=== PATIENT | male | born 1975 | race Caucasian/White ===

== ENCOUNTER 2018-06-15 09:32 | Emergency (ER) | payer MEDICAID, OTHER ==
[~2018-06-15] VITALS: Ht 175.3 cm; Wt 59.0 kg
[2018-06-15 09:52] VITALS: BP 120/76
[2018-06-15 11:19] LABS: Basophils # (auto) 0.1 uL; Basophils % (auto) 0.9 % (0.0-2.0); Eosinophils # (auto) 0 uL; Eosinophils % (auto) 0.4 % (0.0-7.0); Lymphocytes # (auto) 2.3 uL; Lymphocytes % (auto) 30.1 % (10.0-50.0); Mean Corpuscular Hemoglobin 32.1 pg (28.0-32.0); Mean Corpuscular Volume 94.3 fL (80.0-100.0); Monocytes # (auto) 0.4 uL; Monocytes % (auto) 5.3 % (0.0-12.0); Neutrophils # (auto) 4.8 uL; Neutrophils % (auto) 63.3 % (37.0-80.0); Nucleated Red Blood Cells % 0.2 %; Platelet Count (auto) 230 10^3/uL (140-450); Red Blood Cells 4.99 10^6/uL (4.5-5.90); Red Cell Distribution Width 14.1 % (11.8-14.3); White Blood Cell 7.6 10^3/uL (4.4-10.8)
[2018-06-15 11:20] LABS: Alanine Aminotransferase 17 U/L (16-61); Albumin 3.8 g/dL (3.4-5.0); Anion Gap 4 (5-15); Blood Urea Nitrogen 12 mg/dL (7-18); Calcium 8.4 mg/dL (8.5-10.1); Carbon Dioxide 29 mmol/L (21-32); Chloride 108 mmol/L (98-107); Glucose 94 mg/dL (74-106); Sodium 141 mmol/L (136-145)
[2018-06-15 11:25] LABS: Alkaline Phosphatase 52 U/L (45-117); Aspartate Aminotransferase 7 U/L (15-37); BUN/Creatinine Ratio 13.3; Bilirubin, Total 0.5 mg/dL (0.2-1.0); GFR African American 120 mL/min; GFR Non-African American 99 mL/min; Total Protein 7.4 g/dL (6.4-8.2)
== END 2018-06-15 14:02 | disposition home or self-care (01) ==
LOC: ER 09:32
DX: R07.89 Other chest pain (principal)
CPT/HCPCS: 36415; 71046; 80053; 83735; 84484; 85025; 93005

== ENCOUNTER 2019-10-03 11:18 | Emergency (ER) | payer BC, MEDICAID ==
[~2019-10-03] VITALS: Ht 172.7 cm; Wt 59.0 kg
[2019-10-03 12:55] VITALS: BP 145/88
== END 2019-10-03 13:14 | disposition home or self-care (01) ==
LOC: ER 11:18
DX: M26.602 Left temporomandibular joint disorder, unspecified (principal); F17.210 Nicotine dependence, cigarettes, uncomplicated

== ENCOUNTER → 2019-10-20 | Emergency (ER) | payer BC, MEDICAID ==
[~2019-10-20] VITALS: Ht 172.7 cm; Wt 63.5 kg
[2019-10-20 22:58] VITALS: BP 130/93
== END | disposition home or self-care (01) ==
LOC: ER 22:15
DX: R05 Cough (principal); R51 Headache; R53.81 Other malaise

== ENCOUNTER 2020-03-16 13:49 | Emergency (ER) | payer MEDICAID ==
[~2020-03-16] VITALS: Ht 172.7 cm; Wt 59.0 kg
[2020-03-16] MEDS ORDERED: FAMOTIDINE (10MG/ML) 2ML VL IV ONE (15:15)
[2020-03-16] MEDS ORDERED: SODIUM CHLORIDE 0.9% 1,000 ML IV ONE (15:15)
[2020-03-16] MEDS ORDERED: PANTOPRAZOLE 40 MG/10 ML VIAL INJ IV ONE (15:15)
[2020-03-16] MEDS ORDERED: ALUM & MAG HYDROX-SIMETH LIQ(MAALOX) 30 ML PO ONE (15:15)
[2020-03-16 15:47] LABS: Basophils # (auto) 0.1 10 ^3/uL (0-0.2); Basophils % (auto) 0.6 % (0.0-2.0); Eosinophils # (auto) 0.3 10 ^3/uL (0-0.8); Eosinophils % (auto) 2.3 % (0.0-7.0); Hematocrit 45.7 % (41.0-53.0); Hemoglobin 15.9 g/dL (13.5-17.5); Lymphocytes # (auto) 3.1 10 ^3/uL (0.4-5.4); Lymphocytes % (auto) 27.5 % (10.0-50.0); Mean Corpuscular Hgb Conc. 34.7 g/dL (32.0-36.0); Mean Corpuscular Volume 92.4 fL (80.0-100.0); Monocytes # (auto) 0.7 10 ^3/uL (0-1.3); Neutrophils # (auto) 7.2 10 ^3/uL (1.6-8.6); Neutrophils % (auto) 63.6 % (37.0-80.0); Platelet Count (auto) 256 10^3/uL (140-450); Red Blood Cells 4.95 10^6/uL (4.5-5.90); Red Cell Distribution Width 13.7 % (11.8-14.3); White Blood Cell 11.3 10^3/uL (4.4-10.8)
[2020-03-16 16:02] LABS: Calcium 8.5 mg/dL (8.5-10.1); Magnesium 2.6 mg/dL (1.6-2.6); Potassium 3.7 mmol/L (3.5-5.1)
[2020-03-16 16:04] LABS: INR 0.98 (0.9-1.15); Partial Thromboplastin Time 23.6 sec (23.0-31.2)
[2020-03-16 16:22] LABS: BUN/Creatinine Ratio 21.8; Bilirubin, Total 0.6 mg/dL (0.2-1.0); Total Protein 7.7 g/dL (6.4-8.2)
[2020-03-16] MEDS ORDERED: HYDR25SU21 PR ×2 (17:29→19:47)
[2020-03-16 19:06] VITALS: BP 124/74
[2020-03-16] MEDS ORDERED: FAMO-12 PO (19:54)
== END 2020-03-16 22:36 | disposition home or self-care (01) ==
LOC: ER 13:49
DX: K64.9 Unspecified hemorrhoids (principal); K62.5 Hemorrhage of anus and rectum; K21.9 Gastro-esophageal reflux disease without esophagitis; F17.210 Nicotine dependence, cigarettes, uncomplicated; Z88.0 Allergy status to penicillin; Z79.899 Other long term (current) drug therapy
CPT/HCPCS: 36415; 80053; 83605; 83690; 83735; 85025; 85610; 85730; 86850; 86900; 86901; 96361; 96374; 99283; J3490; J7030

== ENCOUNTER 2021-12-01 12:31 | Emergency (ER) | payer MEDICAID ==
[~2021-12-01] VITALS: Ht 172.7 cm; Wt 75.0 kg
[2021-12-01 14:08] VITALS: BP 139/92
== END 2021-12-01 15:48 | disposition home or self-care (01) ==
LOC: ER 12:31
DX: M26.602 Left temporomandibular joint disorder, unspecified (principal); F41.9 Anxiety disorder, unspecified; K21.9 Gastro-esophageal reflux disease without esophagitis; F17.210 Nicotine dependence, cigarettes, uncomplicated; Z88.0 Allergy status to penicillin
CPT/HCPCS: 71046; 93005

== ENCOUNTER 2024-06-07 19:24 | Emergency (ER) | payer MEDICAID ==
[~2024-06-07] VITALS: Ht 175.3 cm; Wt 63.6 kg
--- NOTE | 2024-06-07 20:17 | ED.PDOC ---
GI ASSESSMENT HPI Comments 48-year-old male came to emergency room for GI bleed. Patient has been having intermittent episodes of GI bleed/rectal bleeding for the past few months, usually spontaneously resolving. However today, he had 8 episodes already of bright red rectal bleeding, associated with lower abdominal pain and nausea. Kenji long denies any abdominal surgeries. Patient has yet to see a GI doctor regarding his history of rectal bleeding. Chief Complaint: GI Bleed Time Seen by MD: 20:16 Primary Care Provider: [facility] Reviewed Notes: Nurses Notes Allergies: Coded Allergies: Penicillins (Verified Allergy, Unknown, 03/16/20) Information Source: Patient Mode of Arrival: Ambulatory Timing: Hours Duration: Intermittent Prehospital treatment: None Quality: Aching, Cramping Vomitus: None Stool: Blood Streaked, Watery Severity: Moderate Recent: None Recent Hx of: Ulcer Disease Pain Location: Suprapubic Modifying Factors: Nothing Associated sign and symptoms: Nausea, Hematochezia, Abdominal Pain Past Medical History PAST MEDICAL HISTORY: GERD Surgical History: Denies all surgeries Family History Family History: Reviewed,noncontributory to illness Social History Smoker: Cigarettes, Less Than 1 Pack/Day Alcohol: Sober Drugs: Denies Drug Use Lives In: Home Constitutional: denies: chills, diaphoresis, fatigue, fever, malaise, sweats, weakness, others EENTM: denies: blurred vision, double vision, ear bleeding, ear discharge, ear drainage, ear pain, ear ringing, eye pain, eye redness, hearing loss, mouth pain, mouth swelling, nasal discharge, nose bleeding, nose congestion, nose pa in, photophobia, tearing, throat pain, throat swelling, voice changes, others Respiratory: denies: cough, hemoptysis, orthopnea, SOB at rest, shortness of breath, SOB with excertion, stridor, wheezing, others Cardiovascular: denies: chest pain, dizzy spells, diaphoresis, Dyspnea on exertion, edema, irregular heart beat, left arm pain, lightheadedness, palpitations, PND, syncope, others Gastrointestinal: reports: abdominal pain, blood streaked bowels, nausea, rectal bleeding; denies: abdomen distended, constipated, diarrhea, dysphagia, difficulty swallowing, hematemesis, melena, poor appetite, poor fluid intake, rectal pain, vomiting, others Genitourinary: denies: burning, dysuria, flank pain, frequency, hematuria, incontinence, penile discharge, penile sore, pain, testicle pain, testicle swelling, urgency, others Neurological: denies: dizziness, fainting, headache, left sided numbness, left sided weakness, numbness, paresthesia, pre-existing deficit, right sided numbness, right sided weakness, seizure, speech problems, tingling, tremors, weakness, others Musculoskeletal: denies: back pain, gout, joint pain, joint swelling, muscle pain, muscle stiffness, neck pain, others Integumetry: denies: bruises, change in color, change in hair/nails, dryness, laceration, lesions, lumps, rash, wounds, others Allergic/Immunocompromised: denies: Difficulty Healing, Frequent Infections, Hives, Itching, others Hematologic/Lymphatic: denies: anemia, blood clots, easy bleeding, easy bruising, swollen glands, others Endocrine: denies: excessive hunger, excessive sweating, excessive thirst, excessive urination, flushing, intolerance to cold, intolerance to heat, unexplained weight gain, unexplained weight loss, others Psychiatric: denies: anxiety, bipolar disorder, depression, hopeless, panic disorder, schizophrenia, sleepless, suicidal, others Physical Exam General Appearance: No Apparent Distress, Normal HEENT: Normal ENT Inspection, Pharynx Normal, TMs Normal Neck: Full Range of Motion, Non-Tender, Normal, Normal Inspection Respiratory: Chest Non-Tender, Lungs Clear, No Accessory Muscle Use, No Respiratory Distress, Normal Breath Sounds Cardiovascular: No Edema, No JVD, No Murmur, No Gallop, Normal Peripheral Pulses, Regular Rate/Rhythm Breast Exam: Deferred Gastrointestinal: No Organomegaly, Non Tender, No Pulsatile Mass, Normal Bowel Sounds, Soft Genitalia: Deferred Pelvic: Deferred Rectal: Deferred Extremities: No calf tenderness, Normal capillary refill, Normal inspection, Normal range of motion, Non-tender, No pedal edema Musculoskeletal : Apperance: Normal Neurologic: Alert, reimbursement rep II-XII nml as Tested, No Motor Deficits, Normal Affect, Normal Mood, No Sensory Deficits Cerebellar Function: Normal Reflexes: Normal Skin: Dry, Normal Color, Warm Lymphatic: No Adenopathy Was a procedure done? Was a procedure done?: No GI differential Dx Differential Diagnosis: Diverticular disease, Gastritis/PUD, Gastroenteritis, GI hemorrhage, Hernia, Inflammatory BD, Ischemic Bowel, Anemia X-Ray, Labs, Meds, VS Vital Signs Date Time Temp Pulse Resp B/P (MAP) Pulse Ox O2 Delivery O2 Flow Rate FiO2 06/07/24 19:55 98.7 93 16 123/85 (98) 96 Lab Test 06/07/24 21:18 06/07/24 19:46 Range/Units White Blood Count 16.8 H 14.0 H 4.4-10.8 10^3/uL Red Blood Count 4.77 4.86 4.5-5.90 10^6/uL Hemoglobin 15.6 16.1 13.5-17.5 g/dL Hematocrit 45.4 45.9 41.0-53.0 % Mean Corpuscular Volume 95.2 94.6 80.0-100.0 fL Mean Corpuscular Hemoglobin 32.8 H 33.1 H 28.0-32.0 pg Mean Corpuscular Hemoglobin Concent 34.4 35.0 32.0-36.0 g/dL Red Cell Distribution Width 13.5 13.6 11.8-14.3 % Platelet Count 255 256 140-450 10^3/uL Mean Platelet Volume 7.3 7.3 6.9-10.8 fL Neutrophils (%) (Auto) 71.6 66.3 37.0-80.0 % Lymphocytes (%) (Auto) 20.7 24.5 10.0-50.0 % Monocytes (%) (Auto) 5.2 6.7 0.0-12.0 % Eosinophils (%) (Auto) 1.9 1.9 0.0-7.0 % Basophils (%) (Auto) 0.6 0.6 0.0-2.0 % Neutrophils # (Auto) 12.1 H 9.3 H 1.6-8.6 10 ^3/uL Lymphocytes # (Auto) 3.5 3.4 0.4-5.4 10 ^3/uL Monocytes # (Auto) 0.9 0.9 0-1.3 10 ^3/uL Eosinophils # (Auto) 0.3 0.3 0-0.8 10 ^3/uL Basophils # (Auto) 0.1 0.1 0-0.2 10 ^3/uL Nucleated Red Blood Cells 0.2 0.0 % Prothrombin Time 10.4 9.3-11.8 sec Prothrombin Time INR 0.98 0.9-1.15 Activated Partial Thromboplast Time 25.6 24.5-34.5 SEC Sodium Level 142 136-145 mmol/L Potassium Level 3.9 3.5-5.1 mmol/L Chloride Level 106 98-107 mmol/L Carbon Dioxide Level 28 20-31 mmol/L Anion Gap 8 5-15 Blood Urea Nitrogen 13 9-23 mg/dL Creatinine 0.83 0.700-1.30 mg/dL Glomerular Filtration Rate Calc 109 >90 mL/min BUN/Creatinine Ratio 15.7 10.0-20.0 Serum Glucose 101 74-106 mg/dL Calcium Level 10.0 8.7-10.4 mg/dL Total Bilirubin 0.4 0.2-1.0 mg/dL Aspartate Amino Transferase (AST) 9 L 13-40 U/L Alanine Aminotransferase (ALT) 15 7-40 U/L Alkaline Phosphatase 56 46-116 U/L Total Protein 7.0 5.7-8.2 g/dL Albumin 4.8 3.2-4.8 g/dL Time of 1ST Reevaluation: 20:12 Reevaluation 1ST: Unchanged Time of 2ND Reevaluation: 21:54 Reevaluation 2ND: Improved Patient Education/Counseling: Diagnosis, Treatment Family Education/Counseling: No Family Present Departure 1 Departure Time of Disposition: 21:54 Impression: Primary Impression: Blood per rectum Additional Impression: Leukocytosis Disposition: 01 HOME / SELF CARE / HOMELESS Condition: Stable Discharged With: Self Critical Care Note Critical Care Time?: Yes (35 min-critical care time only) Critical care comment: Active rectal bleeding Stability Stability form required: No Heart Score Heart Score: Heart Score Response (Comments) Value History N/A 0 EKG N/A 0 Age N/A 0 Risk Factors N/A 0 Troponin N/A 0 Total 0 I personally scribed for ALEJANDRO HICKMAN MD ([email or web address]) on 06/07/24 at 20:17. Electronically submitted by Abhijit Valente ([email or web address]). ALEJANDRO HICKMAN MD Jun 07, 2024 20:17
[2024-06-07 20:22] LABS: Basophils # (auto) 0.1 10 ^3/uL (0-0.2); Basophils % (auto) 0.6 % (0.0-2.0); Eosinophils # (auto) 0.3 10 ^3/uL (0-0.8); Eosinophils % (auto) 1.9 % (0.0-7.0); Hematocrit 45.9 % (41.0-53.0); Hemoglobin 16.1 g/dL (13.5-17.5); Lymphocytes # (auto) 3.4 10 ^3/uL (0.4-5.4); Lymphocytes % (auto) 24.5 % (10.0-50.0); Mean Corpuscular Hemoglobin 33.1 pg (28.0-32.0); Mean Corpuscular Volume 94.6 fL (80.0-100.0); Monocytes # (auto) 0.9 10 ^3/uL (0-1.3); Monocytes % (auto) 6.7 % (0.0-12.0); Neutrophils # (auto) 9.3 10 ^3/uL (1.6-8.6); Neutrophils % (auto) 66.3 % (37.0-80.0); Platelet Count (auto) 256 10^3/uL (140-450); Red Blood Cells 4.86 10^6/uL (4.5-5.90); Red Cell Distribution Width 13.6 % (11.8-14.3)
[2024-06-07 20:37] LABS: Alanine Aminotransferase 15 U/L (7-40); Albumin 4.8 g/dL (3.2-4.8); Alkaline Phosphatase 56 U/L (46-116); Anion Gap 8 (5-15); BUN/Creatinine Ratio 15.7 (10.0-20.0); Bilirubin, Total 0.4 mg/dL (0.2-1.0); Blood Urea Nitrogen 13 mg/dL (9-23); Carbon Dioxide 28 mmol/L (20-31); Chloride 106 mmol/L (98-107); Glucose 101 mg/dL (74-106); Potassium 3.9 mmol/L (3.5-5.1); Sodium 142 mmol/L (136-145)
[2024-06-07 20:38] LABS: Aspartate Aminotransferase 9 U/L (13-40)
[2024-06-07 20:39] LABS: INR 0.98 (0.9-1.15); Partial Thromboplastin Time 25.6 SEC (24.5-34.5); Prothrombin Time 10.4 sec (9.3-11.8)
[2024-06-07 21:40] LABS: Basophils # (auto) 0.1 10 ^3/uL (0-0.2); Basophils % (auto) 0.6 % (0.0-2.0); Eosinophils # (auto) 0.3 10 ^3/uL (0-0.8); Eosinophils % (auto) 1.9 % (0.0-7.0); Hematocrit 45.4 % (41.0-53.0); Hemoglobin 15.6 g/dL (13.5-17.5); Lymphocytes # (auto) 3.5 10 ^3/uL (0.4-5.4); Lymphocytes % (auto) 20.7 % (10.0-50.0); Mean Corpuscular Hemoglobin 32.8 pg (28.0-32.0); Mean Corpuscular Hgb Conc. 34.4 g/dL (32.0-36.0); Mean Corpuscular Volume 95.2 fL (80.0-100.0); Monocytes # (auto) 0.9 10 ^3/uL (0-1.3); Monocytes % (auto) 5.2 % (0.0-12.0); Neutrophils # (auto) 12.1 10 ^3/uL (1.6-8.6); Neutrophils % (auto) 71.6 % (37.0-80.0); Nucleated Red Blood Cells % 0.2 %; Platelet Count (auto) 255 10^3/uL (140-450); Red Blood Cells 4.77 10^6/uL (4.5-5.90); Red Cell Distribution Width 13.5 % (11.8-14.3); White Blood Cell 16.8 10^3/uL (4.4-10.8)
[2024-06-07 23:25] VITALS: BP 119/74; PULSE 98; RESP 14; TEMP 98.7; O2SAT 93
[2024-06-07] MEDS: SODIUM CHLORIDE 0.9% 500 ML IV ONE (23:50)
== END 2024-06-08 00:18 | disposition home or self-care (01) ==
LOC: ER 19:24
DX: K62.5 Hemorrhage of anus and rectum (principal); D72.829 Elevated white blood cell count, unspecified; K21.9 Gastro-esophageal reflux disease without esophagitis; F17.210 Nicotine dependence, cigarettes, uncomplicated; Z88.0 Allergy status to penicillin
CPT/HCPCS: 36415; 80053; 85025; 85610; 85730; 86850; 86900; 86901; 99291